=== PATIENT | male | born 1975 | race Two or more races ===

== ENCOUNTER → 2018-08-06 17:26 | Emergency (ER) | payer OTHER ==
[2018-08-06 19:55] LABS: Urine Appearance Clear; Urine Bilirubin Negative (Negative); Urine Blood Negative (Negative); Urine Color Yellow; Urine Glucose Negative (Negative); Urine Ketones Negative (Negative); Urine Nitrite Negative (Negative); Urine Protein Negative (Negative); Urine Specific Gravity 1.008 (1.010-1.030); Urine Urobilinogen Negative (Negative)
--- NOTE | 2018-08-06 21:11 | ED ---
GI/ HPI - HPI Summary HPI Summary: Patient complains of wanting to be tested for possible ureaplasma urealyticum infection. States was positive for UTI with this bacteria recently and her PCP advise has been be tested as well. Patient denies any symptoms, pain or injury. Just wants to be tested. - History of Current Complaint Chief Complaint: EDGeneral Time Seen by Provider: 08/06/18 19:48 Stated Complaint: BLOOD TEST Hx Obtained From: Patient Current Severity: None Pain Intensity: 0 Associated Signs and Symptoms: Positive: Negative - Allergy/Home Medications Allergies/Adverse Reactions: Allergies Allergy/AdvReac Type Severity Reaction Status Date / Time No Known Allergies Allergy Verified 08/06/18 17:37 PMH/Surg Hx/FS Hx/Imm Hx Endocrine/Hematology History: Denies: Hx Anticoagulant Therapy Cardiovascular History: Denies: Hx Cardiac Arrest History: Denies: Hx Dialysis Sensory History: Denies: Hx Eye Prosthesis Opthamlomology History: Denies: Hx Legally Blind EENT History: Denies: Hx Deafness Neurological History: Denies: Hx Developmental Delay Psychiatric History: Denies: Hx Autism Infectious Disease History: No Infectious Disease History: Reports: Traveled Outside the [place] in Last 30 Days - Social History Alcohol Use: None Substance Use Type: Reports: None Smoking Status (MU): Never Smoked Tobacco Review of Systems Constitutional: Negative Eyes: Negative ENT: Negative Cardiovascular: Negative Respiratory: Negative Gastrointestinal: Negative Genitourinary: Negative Musculoskeletal: Negative Skin: Negative Neurological: Negative Psychological: Normal All Other Systems Reviewed And Are Negative: Yes Physical Exam Triage Information Reviewed: Yes Vital Signs On Initial Exam: Initial Vitals Temp Pulse Resp BP Pulse Ox 98.5 F 69 18 111/68 96 08/06/18 17:32 08/06/18 17:32 08/06/18 17:32 08/06/18 17:32 08/06/18 17:32 Vital Signs Reviewed: Yes Appearance: Positive: Well-Appearing Skin: Positive: Warm Head/Face: Positive: Normal Head/Face Inspection Eyes: Positive: Normal ENT: Positive: Normal ENT inspection Neck: Positive: Supple Respiratory/Lung Sounds: Positive: Clear to Auscultation Cardiovascular: Positive: Normal Abdomen Description: Positive: Nontender Musculoskeletal: Positive: Normal Neurological: Positive: Normal Psychiatric: Positive: Normal AVPU Assessment: Alert - [place] Coma Scale Best Eye Response: 4 - Spontaneous Best Motor Response: 6 - Obeys Commands Best Verbal Response: 5 - Oriented Coma Scale Total: 15 Diagnostics - Vital Signs Vital Signs Temp Pulse Resp BP Pulse Ox 08/06/18 19:23 98.7 F 68 16 123/61 98 08/06/18 17:32 98.5 F 69 18 111/68 96 - Laboratory Lab Results: Lab Results 08/06/18 Range/Units 19:34 Urine Color Yellow Urine Appearance Clear Urine pH 8.0 (5-9) Ur Specific [place] 1.008 L (1.010-1.030) Urine Protein Negative (Negative) Urine Ketones Negative (Negative) Urine Blood Negative (Negative) Urine Nitrate Negative (Negative) Urine Bilirubin Negative (Negative) Urine Urobilinogen Negative (Negative) Ur Leukocyte Esterase Negative (Negative) Urine Glucose Negative (Negative) Lab Statement: Any lab studies that have been ordered have been reviewed, and results considered in the medical decision making process. GIGU Course/Dx - Course Course Of Treatment: Patient complains of wanting to be tested for possible ureaplasma urealyticum infection. States was positive for UTI with this bacteria recently and her PCP advise has been be tested as well. Patient denies any symptoms, pain or injury. Just wants to be tested. Vital signs within normal limits. UA negative. - Diagnoses Provider Diagnoses: Normal urinalysis Discharge - Sign-Out/Discharge Documenting (check all that apply): Patient Departure - Discharge Plan Condition: Stable Disposition: HOME Patient Education Materials: Urinary Tract Infection in Men (ED) Referrals: Antonio Mojica NP [Primary Care Provider] - Additional Instructions: Urine cultures are pending. You will be contacted if there in a couple days if they are positive. Follow-up with primary care. Return to the ED for any new or worsening symptoms. - Billing Disposition and Condition Condition: STABLE Disposition: Home
[2018-08-06 21:53] VITALS: BP 116/63
== END | disposition home or self-care (01) ==
LOC: ED 17:26
DX: Z13.89 Encounter for screening for other disorder (principal)
CPT/HCPCS: 81003; 87086; 99281